=== PATIENT | female | born 1995 | race Caucasian/White ===

== ENCOUNTER 2023-08-09 14:06 | Emergency (ER) | payer SELFPAY ==
[2023-08-09] VITALS (12 sets, daily range): BP systolic 119–136; BP diastolic 67–94; PULSE 61–84; RESP 15–20; TEMP 36.8; O2SAT 98–100; BMI 33.5
--- NOTE | 2023-08-09 14:15 | XR_ITS ---
The [address] [address] Patient Name: DIVYA VARELA MRN: [id number] date: 1995 Sex: F Assigned Patient Location: ER Current Patient Location: ED.MAIN Accession/Order Number: [id number] Exam Date: 08/09/2023 14:30 Report Date: 08/09/2023 15:21 At the request of: THUAN CRUZ Procedure: XR chest 1V EXAM: XR chest 1V REASON FOR EXAM: Female, 28 years, cp. TECHNIQUE: A single AP view of the chest is performed. COMPARISON: None. FINDINGS: Cardiac monitoring leads overlie the chest. The lungs are underinflated. There is no focal consolidation. Normal pleura. Normal size heart. Normal mediastinum and telly. Normal visualized pulmonary arteries. Normal visualized aortic arch and descending thoracic aorta. Normal visualized thoracic spine. Normal visualized ribs, clavicles, and shoulders. There is no demonstrated abnormality of the visualized soft tissue structures of the upper abdomen. XR/XR chest 1V IMPRESSION: Low lung volumes without focal consolidation. Electronically authenticated by: LEOPOLDO RAMIREZ Date: 08/09/2023 15:21
--- NOTE | 2023-08-09 14:15 | ECG_ITS ---
The [facility] Test Date: 2023-08-09 Pat Name: DIVYA VARELA Department: Room: - Gender: Female Transportation Manager: : 1995 Requested By: Order Number: [id number] Reading MD: EVERETTE DAVIS Measurements Intervals [place] Rate: 64 P: 47 LA: 146 QRS: 61 QRSD: 86 T: 41 QT: 406 QTc: 415 Interpretive Statements 1100 Sinus rhythm 2420 RSR (QR) in lead V1/V2, consistent with right ventricular conduction delay 9130 borderline ECG No previous ECG available for comparison Electronically Signed On 08-10-2023 17:39:37 EST by EVERETTE DAVIS
[2023-08-09 14:29] LABS: Basophils Percent Auto 0.3 % (0.2-2.0); Eosinophils Percent Auto 0.5 % (0.9-7.0); Hematocrit 38.7 % (36.0-48.0); Hemoglobin 12.9 g/dL (12.0-16.0); Immature Granulocytes Abs Auto 0.02 10^3/uL (0.00-0.03); Immature Granulocytes Pct Auto 0.3 % (0.0-0.5); Lymphocytes Absolute Auto 2.1 10^3/uL (1.2-3.8); Lymphocytes Percent Auto 31.2 % (20.5-60.0); Mean Corpuscular HGB Conc 33.3 g/dL (29.9-35.2); Mean Corpuscular Hemoglobin 31.2 pg (26.7-34.0); Mean Corpuscular Volume 93.7 fL (81.0-99.0); Mean Platelet Volume 12.2 fL (9.5-13.5); Monocytes Absolute Auto 0.5 10^3/uL (0.3-0.8); Monocytes Percent Auto 7.5 % (1.7-12.0); Neutrophils Percent Auto 60.2 % (43.0-75.0); Platelet Count 210 10^3/uL (150-450); Red Blood Count 4.13 10^6/uL (4.20-5.40); Red Cell Distribution Width 12.4 % (11.0-15.0); White Blood Count 6.6 10^3/uL (4.0-11.0)
[2023-08-09 14:45] LABS: Alanine Aminotransferase 24 U/L (14-59); Albumin Globulin Ratio 0.8; Albumin Level 3.8 g/dL (3.4-5.0); Alkaline Phosphatase 49 U/L (46-116); Anion Gap 11.6; Aspartate Amino Transferase 19 U/L (15-37); BUN Creatinine Ratio 14.1; Bilirubin Total 0.3 mg/dL (0.2-1.0); Calcium 9.4 mg/dL (8.5-10.1); Carbon Dioxide 28.2 mmol/L (21.0-32.0); Chloride 102 mmol/L (98-107); Estimated GFR (African America >60 (>=60); Estimated GFR (Non-African Ame >60 (>=60); Globulin 4.6 g/dL; Glucose 99 mg/dL (74-106); Potassium 3.8 mmol/L (3.5-5.1); Sodium 138 mmol/L (136-145); Total Protein 8.4 g/dL (6.4-8.2)
[2023-08-09 14:47] LABS: Troponin I High Sensitivity 4.6 pg/mL (4.0-51.3)
[2023-08-09] MEDS: 0.9 % SODIUM CHLORIDE 1,000 ML 500 ML IV (15:08)
[2023-08-09] MEDS: KETOROLAC TROMETHAMINE 30 MG/ML VIAL 15 MG IVP (15:09)
--- NOTE | 2023-08-09 16:07 | ED.CHESTPAI1 ---
HPI - Chest Pain General Chief Complaint: Chest Pain Stated Complaint: CHEST PAIN Time Seen by Provider: 08/09/23 14:15 Source: patient Mode of arrival: walk-in Limitations comment: Chest pain and headache started at 11am while sitting in quaker. Friend took pt to [facility] ER but wait was too long so pt came to this ER for eval. EKG complete at [facility] ER. Pt has a h/o syncope episodes, PCP is looking into this and is now waiting for results from a heart monitor she was wearing. History of Present Illness HPI narrative: The patient presenting to us with a left-sided upper chest pain that started almost 11:00 while she was sitting in the quaker, the patient mentioned that she had this pain before during the month and she did had a workup before and referred to cardiology as outpatient this pain is left upper chest not radiating not associated with any nausea or vomiting but she does have pain whenever she take a deep breath or lean forward. The patient denies any fever chills cough or any other complaints She does not have any risk factors for PE including no immobilization and no contraceptive intake Related Data Home Medications Medication Instructions Recorded Confirmed cholecalciferol (vitamin D3) 25 25 mcg PO DAILY 08/09/23 08/09/23 mcg (1,000 unit) capsule (Vitamin D3) ondansetron 4 mg disintegrating 4 mg PO Q6H PRN nausea and vomiting 08/09/23 08/09/23 tablet Previous Rx's Medication Instructions Recorded meloxicam 15 mg tablet 15 mg PO DAILY PRN pain #10 tabs 08/09/23 Allergies Allergy/AdvReac Type Severity Reaction Status Date / Time No Known Drug Allergies Allergy Verified 08/09/23 14:14 Review of Systems ROS Status of ROS 10 or more systems reviewed and unremarkable except as noted in history and below Exam Narrative Exam Narrative: Nurses notes and vital signs reviewed and patient is not hypoxic. General: Well-appearing and in no apparent distress. Skin: Warm, dry, no pallor noted. No rash. Head: Normocephalic, atraumatic. Neck: Supple, non-tender. Eye: Pupils are equal, round and EOMI. No scleral icterus. Ears, Nose, Mouth, and Throat: TM are clear, no nasal mucosal hypertrophy. Oral mucosa is moist, no posterior oropharynx erythema, uvula is mid-line Cardiovascular: Regular Rate and Rhythm without murmur, gallop or rub. Respiratory: No accessory muscle use or respiratory distress. Lungs are clear to auscultation, no wheezing, rales or rhonchi Chest Wall: There is mild tenderness upon palpation of the left upper chest and the patient have no signs of trauma or contusion Back: No midline thoracic or lumbar vertebral tenderness. No CVA tenderness Musculoskeletal: normal ROM, no calf or popliteal tenderness, no lower extremity edema/swelling GI: Abdomen is soft, non-distended. Normal bowel sounds. No masses appreciated. No tenderness to palpation. No rebound, guarding, or rigidity noted. Neurological: A&O x4. No cranial nerve dysfunction observed. No truncal ataxia. Moves all extremities. Sensation intact. Psychiatric: Cooperative and interactive. Normal mood and affect. Constitutional Vital Signs, click to edit/add: Last Vital Signs Temp 98.2 F 08/09/23 14:09 Pulse 74 08/09/23 15:40 Resp 16 08/09/23 15:40 BP 127/82 08/09/23 15:34 Pulse Ox 99 08/09/23 15:40 O2 Del Method Room Air 08/09/23 14:25 Course Vital Signs Vital signs: Vital Signs Temperature 98.2 F 08/09/23 14:09 Pulse Rate 68 08/09/23 14:09 Respiratory Rate 16 08/09/23 14:09 Blood Pressure 119/77 08/09/23 14:09 Pulse Oximetry 100 08/09/23 14:09 Oxygen Delivery Method Room Air 08/09/23 14:09 Temperature 98.2 F 08/09/23 14:09 Pulse Rate 74 08/09/23 15:40 Respiratory Rate 16 08/09/23 15:40 Blood Pressure 127/82 08/09/23 15:34 Pulse Oximetry 99 08/09/23 15:40 Oxygen Delivery Method Room Air 08/09/23 14:25 MDM - Chest Pain MDM Narrative Medical decision making narrative: The patient EKG in the ER was showing sinus rhythm with a heart rate of [address] elevation or depression The patient have low risk factor with her age of 28 she had a CBC and chemistry showed no acute pathology as well as troponin that is negative Her presentation mostly secondary to atypical chest pain she was treated in the ER with Toradol discharged home with Genny and referred to continue her follow-up with her medical office asst as she was planned for a monitor The patient is to follow up with primary care physician in next 2-3 days or to return to the emergency department should any of the signs or symptoms worsen or new symptoms develop. The patient agrees with the following Diagnosis and Treatment plan and the patient will be discharged home. Lab Data Labs: Lab Results 08/09/23 Range/Units 14:24 WBC 6.6 (4.0-11.0) 10^3/uL RBC 4.13 L (4.20-5.40) 10^6/uL Hgb 12.9 (12.0-16.0) g/dL Hct 38.7 (36.0-48.0) % MCV 93.7 (81.0-99.0) fL MCH 31.2 (26.7-34.0) pg MCHC 33.3 (29.9-35.2) g/dL RDW 12.4 (11.0-15.0) % Plt Count 210 (150-450) 10^3/uL MPV 12.2 (9.5-13.5) fL Neut % (Auto) 60.2 (43.0-75.0) % Lymph % (Auto) 31.2 (20.5-60.0) % [place] % (Auto) 7.5 (1.7-12.0) % Eos % (Auto) 0.5 L (0.9-7.0) % Baso % (Auto) 0.3 (0.2-2.0) % Neut # (Auto) 4.0 (1.4-6.5) 10^3/uL Lymph # (Auto) 2.1 (1.2-3.8) 10^3/uL [place] # (Auto) 0.5 (0.3-0.8) 10^3/uL Eos # (Auto) 0.0 (0.0-0.7) 10^3/uL Baso # (Auto) 0.0 (0.0-0.1) 10^3/uL Abs Immat Gran (auto) 0.02 (0.00-0.03) 10^3/uL Imm/Tot Granulo (auto) 0.3 (0.0-0.5) % Sodium 138 (136-145) mmol/L Potassium 3.8 (3.5-5.1) mmol/L Chloride 102 (98-107) mmol/L Carbon Dioxide 28.2 (21.0-32.0) mmol/L Anion Gap 11.6 BUN 9.0 (7.0-18.0) mg/dL Creatinine 0.64 (0.55-1.02) mg/dL Est GFR ( Amer) >60 (>=60) Est GFR (Non-Af Amer) >60 (>=60) BUN/Creatinine Ratio 14.1 Glucose 99 (74-106) mg/dL Calcium 9.4 (8.5-10.1) mg/dL Total Bilirubin 0.3 (0.2-1.0) mg/dL AST 19 (15-37) U/L ALT 24 (14-59) U/L Alkaline Phosphatase 49 (46-116) U/L Troponin I High Sens 4.6 (4.0-51.3) pg/mL Total Protein 8.4 H (6.4-8.2) g/dL Albumin 3.8 (3.4-5.0) g/dL Globulin 4.6 g/dL Albumin/Globulin Ratio 0.8 Discharge Plan Discharge Chief Complaint: Chest Pain Clinical Impression: Atypical chest pain Patient Disposition: Home, Self-Care Time of Disposition Decision: 16:03 Condition: Good Prescriptions / Home Meds: New meloxicam 15 mg tablet 15 mg PO DAILY PRN (Reason: pain ) Qty: 10 0RF No Action cholecalciferol (vitamin D3) [Vitamin D3] 25 mcg (1,000 unit) capsule 25 mcg PO DAILY ondansetron 4 mg tablet,disintegrating 4 mg PO Q6H PRN (Reason: nausea and vomiting) Instructions: Chest Wall Pain (ED) Stand Alone Forms: Portal Instructions Referrals: Physician,Non-Staff, MD [Primary Care Provider] - 1 week
== END 2023-08-09 16:17 | disposition home or self-care (01) ==
PROVIDERS: Emergency Provider Emergency Medicine
DX: R07.89 Other chest pain (principal); Z79.899 Other long term (current) drug therapy
CPT/HCPCS: 36415; 71045; 80053; 84484; 85025; 93005; 96374; 99285